=== PATIENT | male | born 1980 | race African-American/Black ===

== ENCOUNTER 2025-05-04 23:20 | Emergency (ER) | payer MEDICAID ==
[~2025-05-04] VITALS: Ht 177.8 cm; Wt 85.1 kg
[2025-05-04 23:48] VITALS: TEMP 98.1
--- NOTE | 2025-05-05 00:42 | DVH ---
EXAM: CT HEAD WITHOUT CONTRAST INDICATION: head injury TECHNIQUE: CT of the head without intravenous contrast. Radiation Dose : 1. Head: CT Dose: CTDI volume is 55.94 mGy. Dose-length product is 990.52 mGy*cm The dose indicators for CT are the volume Computed Tomography (CT) Dose Index (CTDIvol) and the Dose Length Product (DLP), and are measured in units of mGy and mGy-cm, respectively. These indicators are not patient dose, but values generated from the CT scanner acquisition factors. The report includes radiation exposure data for exposures received during this examination. COMPARISON: None FINDINGS: There is no evidence of acute intracranial hemorrhage, extra-axial collection, mass effect, midline s hift, herniation or hydrocephalus. The ventricles, sulci and cisterns are age appropriate. The tate-white differentiation is intact. The visualized paranasal sinuses and mastoid air cells are clear. The surrounding soft tissues and osseous structures are unremarkable. IMPRESSION: 1. No acute intracranial abnormality. Radiation optimization: All CT scans at this facility use at least one of these dose optimization jumana hniques: automated exposure control mA and/or kV adjustment per patient size (includes targeted exam s where dose is matched to clinical indication) or iterative reconstruction.
[2025-05-05] MEDS ORDERED: ACET500T58 PO (02:09)
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
[2025-05-05 02:57] VITALS: BP 154/91; PULSE 65; RESP 18; O2SAT 100
== END 2025-05-05 02:59 | disposition home or self-care (01) ==
LOC: ER 23:21
DX: S09.90XA Unspecified injury of head, initial encounter (principal); G44.89 Other headache syndrome; I10 Essential (primary) hypertension; F10.90 Alcohol use, unspecified, uncomplicated; E78.5 Hyperlipidemia, unspecified; Y35.819A Legal intervention involving manhandling, unspecified person injured, initial encounter; Y93.89 Activity, other specified; Y92.89 Other specified places as the place of occurrence of the external cause; Y99.8 Other external cause status; Y90.9 Presence of alcohol in blood, level not specified
CPT/HCPCS: 70450